=== PATIENT | female | born 1970 | race Caucasian/White ===

== ENCOUNTER 2022-09-05 09:33 | Outpatient (CLI) | payer BC ==
[~2022-09-05 09:33] MED LIST: Iopamidol 300 61% 50 ML VIAL FS ONE; Magnevist 469MG/ML 20 ML VIAL ONE
[2022-09-05] MEDS ORDERED: EPINEPHrine 1 MG/ML AMP ONE (10:12)
[2022-09-05] MEDS ORDERED: Lidocaine 1% PF 5 ML VIAL ONE (10:13)
[2022-09-05] MEDS ORDERED: Sodium Bicarbonate 2.5 MEQ/5 ML VIAL ONE (10:13)
== END 2022-09-05 09:34 | disposition home or self-care (01) ==
LOC: CSHMRI 09:33
PROVIDERS: ATTEND Orthopaedic Surgery
DX: M24.811 Other specific joint derangements of right shoulder, not elsewhere classified (principal); M75.111 Incomplete rotator cuff tear or rupture of right shoulder, not specified as traumatic
CPT/HCPCS: 23350; J0171